=== PATIENT | male | born 1970 | race Caucasian/White ===

== ENCOUNTER 2019-12-05 11:07 | Emergency (ER) | payer OTHER ==
[~2019-12-05] VITALS: Ht 172.7 cm; Wt 83.5 kg
[2019-12-05 11:10] VITALS: BP 133/67
--- NOTE | 2019-12-05 11:55 | NUR ---
URINE COLLECTED/SENT TO LAB. PT BACK FROM CT, AWAITING READ.
[2019-12-05 11:56] LABS: MICROSCOPIC NOT IND
[2019-12-05 12:02] LABS: CULTURE INDICATED? NO
--- NOTE | 2019-12-05 12:14 | NUR ---
ALL RESULTS BACK, PT FOR RECHECK.
== END 2019-12-05 12:53 | disposition home or self-care (01) ==
LOC: ED 12:20
DX: M54.5 Low back pain (principal); R10.9 Unspecified abdominal pain
CPT/HCPCS: 74176; 81003; 99284